=== PATIENT | female | born 1965 | race Caucasian/White ===

== ENCOUNTER 2019-03-28 18:46 | Emergency (ER) | payer OTHER, MEDICARE ==
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
[2019-03-28] MEDS ORDERED: IBUPROFEN PO ONE (22:48)
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
[2019-03-29 06:19] VITALS: BP 158/82
== END 2019-03-28 23:15 | disposition home or self-care (01) ==
LOC: ED 18:46
DX: S40.021A Contusion of right upper arm, initial encounter (principal); S09.90XA Unspecified injury of head, initial encounter; I10 Essential (primary) hypertension; E11.9 Type 2 diabetes mellitus without complications; V49.49XA Driver injured in collision with other motor vehicles in traffic accident, initial encounter; Y93.89 Activity, other specified; Y92.410 Unspecified street and highway as the place of occurrence of the external cause; Y99.8 Other external cause status